=== PATIENT | female | born 1960 | race Two or more races ===

== ENCOUNTER 2024-10-31 08:25 | Day surgery (SDC) | payer OTHER, SELFPAY ==
[2024-10-31] VITALS (11 sets, daily range): BP systolic 150–211; BP diastolic 80–117; PULSE 86–109; RESP 14–20; TEMP 36.6–36.7; O2SAT 94–100; BMI 24.0
[2024-10-31] MEDS: DiphenhydrAMINE INJ 50 MG/ML VIAL 25 MG IV (09:50)
[2024-10-31] MEDS: MIDAZOLAM INJ 1 MG/ML VIAL 2 ML (ASD USE ONLY) 2 MG IV (09:56)
[2024-10-31] MEDS: fentaNYL CIT INJ 50 mCg/ML AMP 2ML (ASD USE ONLY) IV (09:56)
[2024-10-31] MEDS: hydrALAZINE INJ 20 MG/ML VIAL 10 MG IV (09:56)
--- NOTE | 2024-10-31 10:07 | SUR.PHASEII ---
1007: received from OR via [employer]. report received from FAUZIA Art. pt sleeping. no s/s of pain or discomfort. no s/s of resp. distress or discomfort.
--- NOTE | 2024-10-31 10:11 | SUR.PREOP ---
0748: pt BP elevated 185/92, informed MD and no new orders received
--- NOTE | 2024-10-31 10:30 | SUR.PHASEII ---
tolerate water without any difficulty
--- NOTE | 2024-10-31 10:54 | SUR.PHASEII ---
1054: pt discharge to home via wheelchair. pt alert and oriented x3. denies any pain or discomfort. no s/s of resp. distress or discomfort. able to ambulate to bathroom without any issues. discharge instructions given to patient and Jesus-, verbalizes understanding. all patient belongings brought given back to patient.
== END 2024-10-31 10:54 | disposition home or self-care (01) ==
PROVIDERS: PCP Family Medicine; Referring Provider Surgery; Visit Provider Surgery
PROC: 0DBE8ZX Excision of Large Intestine, Via Natural or Artificial Opening Endoscopic, Diagnostic (ICD-10-PCS; CPT 45380; principal; 2024-10-31 10:45)
DX: Z12.11 Encounter for screening for malignant neoplasm of colon (principal); K64.8 Other hemorrhoids; K57.30 Diverticulosis of large intestine without perforation or abscess without bleeding
CPT/HCPCS: 45378; J0360; J1200; J2250; J3010

== ENCOUNTER 2024-11-14 12:57 | Outpatient (AMB) | payer OTHER, SELFPAY ==
--- NOTE | 2024-11-14 13:01 | PD.GSCLVISIT ---
Vital Signs - [facility] 11/14/24 13:04 Height 1.55 m Height Method Stated Weight 57.351 kg Weight Measurement Method Standing Scale BMI 23.8 BP 160/91 H Blood Pressure Source Automatic Cuff Blood Pressure Location Left Upper Arm Position Sitting Respiration 18 Pulse 77 Pulse Source Monitor Temp 96.5 F L Temp Source Temporal Artery Scan Pulse Oximetry (%) 97 Oxygen Delivery Method Room Air Med/Allergies Allergies & Medications Allergies cephalexin (From Keflex) Allergy (Intermediate, Verified 11/14/24 13:05) Anaphylaxis Medication Reconciliation loratadine 10 mg tablet 10 mg PO QDAY PRN Allergy Symptoms 10/31/24 [History Confirmed 11/14/24] MA Intake Visit Data Collection New Patient or Established: Established Patient (seen at [facility] within 3 years) Seen by Clinical Staff ONLY (RN/MA): No Reason for Visit:: COLONOSCOPY F/U Pain Present Currently: No Corporate Affairs Manager Required: No PCP or OBGYN visit in last 3 months: Yes Hx Now: No Do You Feel Safe at Home: Yes Authorities Contacted: N/A Smoking Status Smoking Status: Never smoker Immunization / Flu Flu Vaccine in the Last 12 Months: No Flu Vaccine Exclusion Criteria: No Exclusion Criteria Past Medical History Past Medical History NEUROLOGIC: Negative Neurological Disorders or Seizures CARDIAC: Positive Cardiac Disorders and Hypertension (no meds-controlled); Negative Congestive Heart Failure RESPIRATORY: Positive Asthma; Negative Chronic Obstructive Pulmonary Disease (COPD) GASTROINTESTINAL: Negative Gastrointestinal Disorders GENITOURINARY: Negative Genitourinary Disorders or Renal Disease MUSCULOSKELETAL: Positive Degenerative Disk Disease (spine) ENDOCRINE: Negative Endocrine Disorders, Diabetes Mellitus Type 1 or Diabetes Mellitus Type 2 HEMATOLOGIC: Positive Blood Disorders and Anemia OTHER HISTORY: Positive Chicken Pox and Cancer; Negative Autoimmune Disease, Blood Transfusions or Anesthesia Reactions Family History FAMILY HISTORY: Positive Family Respiratory Disorders (brother-copd), Family Cardiac Disorders (mom-stroke) and Family Cancer (father-lung CA) Surgical History SURGICAL: Positive Eye Surgery (fix eyelid) and Section Social History SMOKING STATUS: Smoking status: Never smoker ALCOHOL: Alcohol Intake: Current HOUSING: Housing: House HPI HPI Narrative 64F s/p screening colonoscopy here to discuss results. Pt reports feeling well overall, she was noted to have mild diverticulosis and external/internal hemorrhoids but she is not bothered by her hemorrhoids and states her BMs are regular without any straining or diarrhea ROS Review of Systems Systems Reviewed: All systems reviewed, normal except as documented Objective/Exam General General Appearance: alert, cooperative and well groomed Resp Respiratory exam: Absent respiratory distress Results Colonoscopy report reviewed Assessment & Plan Diagnosis / Problem List (1) Encounter to discuss colonoscopy results: Status: Acute Assessment & Plan: 64F s/p screening colonoscopy with findings of asymptomatic hemorrhoids and mild diverticulosis. Pt understands her next colonoscopy is due in 10 years Office Procedures GNS Level of Care Nursing/Assessment Patient Status: Established Patient Nursing Assessment/Reassesment: Medication Reconciliation, Update PMH in EMR and Vital Signs Coordination of Care: Complex Care and Chronic Disease 1-5, Consent,records obtained, informed consent, Education Simp Pt/Fam, Results/Orders obtained and Staff clarify orders Established Patient Charge Established Patient Point Assignment: 90 Established Patient Point Charge: EP Level 3 (80-115) Patient Portal Questionaires Social History Living Situation History Housing: House Tobacco History Smoking Status: Never smoker Alcohol History Alcohol Intake: Current Domestic Abuse History Do You Feel Safe at Home: Yes Review of Systems Report any current symptoms Only answer those that you have currently: Past Medical History Past Medical History Have you ever been diagnosed with any of the following: Neurological Problems Seizures: No Cardiology Problems Congestive Heart Failure: No Hypertension: Yes (no meds-controlled) Respiratory Problems Chronic Obstructive Pulmonary Disease (COPD): No Asthma: Yes Genital/Urinary Problems Renal Disease: No Musculoskeletal Problems Degenerative Disk Disease: Yes (spine) Endocrine Problems Diabetes Mellitus Type 1: No Diabetes Mellitus Type 2: No Blood Problems Anemia: Yes Other Problems Autoimmune Disease: No Blood Transfusions: No Anesthesia Reactions: No Chicken Pox: Yes Cancer: Yes
[2024-11-14 13:04] VITALS: BP 160/91; PULSE 77; RESP 18; TEMP 35.8; O2SAT 97; BMI 23.8
== END 2024-11-14 13:13 | disposition home or self-care (01) ==
LOC: HODSRG 12:57
PROVIDERS: PCP Family Medicine; Referring Provider Family Medicine; Supervising Provider Surgery; Visit Provider Surgery
DX: Z71.2 Person consulting for explanation of examination or test findings (principal); K64.9 Unspecified hemorrhoids; K57.90 Diverticulosis of intestine, part unspecified, without perforation or abscess without bleeding
CPT/HCPCS: 99213; G0463

== ENCOUNTER → 2025-05-14 | Outpatient (CLI) | payer OTHER, SELFPAY ==
[2025-05-14 09:32] LABS: Basophils # (Auto) 0.0 Thou/mm3 (0.0-0.2); Basophils % (Auto) 1 % (0-2.5); Eosinophils # (Auto) 0.1 Thou/mm3 (0.0-0.5); Eosinophils % (Auto) 2 % (0-10); Hematocrit 42.7 % (36.0-46.0); Hemoglobin 14.3 g/dL (12.0-16.0); Immature Granulocytes Auto 0.01 Thou/mm3 (0.00-0.00); Lymphocytes # (Auto) 1.8 Thou/mm3 (1.0-4.8); Lymphocytes % (Auto) 40 % (10-50); Mean Corpuscular HGB Conc 33.5 g/dl (31.0-37.0); Mean Corpuscular Hemoglobin 30.2 pg (25.0-35.0); Mean Corpuscular Volume 90 fL (80-100); Monocytes # (Auto) 0.4 Thou/mm3 (0.0-0.8); Monocytes % (Auto) 8 % (0-12); Neutrophils # (Auto) 2.3 Thou/mm3 (1.8-7.7); Neutrophils % (Auto) 49 % (37-80); Nucleated Red Blood Cell # 0.00 Thou/mm3 (0.00-0.00); Nucleated Red Blood Cell % 0 /100 WBC (0); Platelet Count 216 Thou/mm3 (140-440); RDW Standard Deviation 41.1 fL (36.4-46.3); Red Blood Count 4.73 Miln/mm3 (4.00-5.20); White Blood Count 4.6 Thou/mm3 (3.6-11.0)
[2025-05-14 09:45] LABS: Vitamin B12 381 pg/mL (211-911); Vitamin D 25 Hydroxy Total 39.4 ng/mL (7.3-40.2)
[2025-05-14 09:57] LABS: Alanine Aminotransferase 35 U/L (10-49); Albumin, Serum 4.6 gm/dL (3.4-4.8); Albumin/Globulin Ratio 1.8 (1.2-2.2); Alkaline Phosphatase 126 U/L (46-116); Anion Gap 6 (7-16); Aspartate Amino Transferase 42 U/L (0-34); BUN/Creatinine Ratio 20 Ratio (12-20); Bilirubin,Total 0.7 mg/dL (0.3-1.2); Blood Urea Nitrogen 14 mg/dL (9-23); Calcium 9.4 mg/dL (8.3-10.6); Calcium (Corrected) 9.4 mg/dL (8.5-10.1); Carbon Dioxide 26.4 mMol/L (20.0-31.0); Cardiac Risk Estimate 5.6 RATIO (3.7-5.6); Chloride 108 mMol/L (98-107); Cholesterol 237 mg/dL (132-200); Creatinine (Component) 0.7 mg/dL (0.6-1.3); Globulin 2.5 gm/dL (2.3-3.5); Glucose 109 mg/dL (74-106); HDL Cholesterol 42 mg/dL (40-60); LDL Cholesterol,Calculated 161 mg/dL (0-130); Osmolality,Calculated 280 (275-295); Potassium 4.3 mMol/L (3.4-5.1); Sodium 140 mMol/L (136-145); Total Protein 7.1 gm/dL (5.7-8.2); Triglycerides 168 mg/dL (30-150); eGFR > 60 See Note
== END | disposition home or self-care (01) ==
PROVIDERS: PCP Family Medicine; Referring Provider Family Medicine; Visit Provider Family Medicine
DX: R79.9 Abnormal finding of blood chemistry, unspecified (principal)
CPT/HCPCS: 36415; 80053; 80061; 82306; 82607; 85025

== ENCOUNTER → 2025-06-02 | Outpatient (CLI) | payer OTHER, SELFPAY ==
[2025-06-02 10:45] LABS: Thyroid Stimulating Hormone 0.97 uIU/mL (0.55-4.78)
[2025-06-02 10:48] LABS: T4 (Thyroxine) 6.3 mcg/dL (4.5-10.9)
== END | disposition home or self-care (01) ==
LOC: COPL 09:53
PROVIDERS: PCP Family Medicine; Referring Provider Family Medicine; Visit Provider Family Medicine
DX: R22.1 Localized swelling, mass and lump, neck (principal)
CPT/HCPCS: 36415; 84436; 84443

== ENCOUNTER → 2025-07-18 | Outpatient (CLI) | payer OTHER, SELFPAY ==
--- NOTE | 2025-07-18 14:04 | XR_ITS ---
Examination: Lumbar spine, 5 views Technique: Lumbar spine AP, lateral, coned lateral lower lumbar spine, bilateral obliques 5 views Exam date and time: July 18, 2025, 1413 hours INDICATIONS: Low back pain beginning 12 years ago FINDINGS: Moderate osteopenia. Diffuse moderate to advanced facet arthropathy No lumbar fracture. Grade 1 anterolisthesis L4 on L5 Diffuse [id number] lumbar degenerative disc disease Mild lumbar spondylosis IMPRESSION: Diffuse [id number] lumbar degenerative disc disease
--- NOTE | 2025-07-18 14:04 | XR_ITS ---
EXAMINATION: Cervical spine, 5 views Technique: Cervical spine AP, AP odontoid, lateral, bilateral obliques, 5 views Exam date and time: July 18, 2025, 1413 hours INDICATIONS: Neck pain 12 years. FINDINGS: Moderate to advanced degenerative disc disease C5-C6, C6-C7 Mild bilateral neural foraminal stenosis C4-C5, C5-C6, C6-C7 No cervical fracture Intact odontoid IMPRESSION: Moderate to advanced degenerative disc disease C5-C6, C6-C7
== END | disposition home or self-care (01) ==
PROVIDERS: PCP Family Medicine; Referring Provider Chiropractor; Visit Provider Chiropractor
DX: M50.322 Other cervical disc degeneration at C5-C6 level (principal); M51.360 Other intervertebral disc degeneration, lumbar region with discogenic back pain only
CPT/HCPCS: 72050; 72110

== ENCOUNTER → 2025-08-13 | Outpatient (CLI) | payer OTHER, SELFPAY ==
--- NOTE | 2025-08-13 10:19 | XR_ITS ---
Examination: Pelvic ultrasound, transabdominal, complete Technique: Transabdominal ultrasound of the pelvis performed using grayscale imaging Date and time of exam: August 13, 2025, 1049 hours INDICATIONS: Lower abdominal pain pelvic pain beginning 3 days ago FINDINGS: Uterus 5.9 cm endometrial stripe 0.3 cm No uterine mass or intrauterine gestation Right ovary 1.8 cm arterial flow. Left ovary 1.9 cm arterial flow IMPRESSION: Negative study
--- NOTE | 2025-08-13 10:19 | XR_ITS ---
Examination: Abdomen sonogram, complete Date and time of exam: August 13, 2025, 1039 hours INDICATIONS: Lower abdominal and pelvic pain beginning 3 days ago.. Technique: Multiple real-time grayscale transabdominal sonographic images of the abdomen have been obtained. Findings: Normal gallbladder. Normal common bile duct 0.3 cm Pancreatic head 1.8 cm Aorta not enlarged. Liver 15.7 cm smooth contour Normal hepatopetal portal venous flow Patent IVC Right kidney 11.0 cm renal cortex 1.3 cm Left kidney 11.8 cm renal cortex 1.6 cm Mild left renal scarring Spleen 8.8 cm IMPRESSION: Normal gallbladder Normal common bile duct Bilateral renal cortical thinning Mild left renal scar formation
== END | disposition home or self-care (01) ==
PROVIDERS: PCP Family Medicine; Referring Provider Nurse Practitioner Family; Visit Provider Nurse Practitioner Family
DX: N28.89 Other specified disorders of kidney and ureter (principal)
CPT/HCPCS: 76700; 76856